=== PATIENT | female | born 1930 | race Caucasian/White ===

== ENCOUNTER 2017-04-25 11:29 | Observation (INO) | payer OTHER ==
[~2017-04-25] VITALS: Ht 157.5 cm; Wt 63.0 kg
[~2017-04-25 11:29] MED LIST: ANTIDEPRESSANT; ATIVAN1 MG PO; AUGMENTIN 875875 MG PO; BP MED?; BUSPIRONE HCL5 MG PO; CIPRO250 M1 PO; CIPROFLOXACIN500 M1 PO; CLARITIN10 MG PO; DIOVAN; DIOVAN HCT 1601 EACH PO; FLAGYL500 MG PO; FLUOXETINE HCL40 MG PO; HYDROCHLOROTHIA50 MG; HYDROCODON-ACE1 EAC7 PO; HYDROCODON-ACE1 EACH PO; HYDROCORTISONE120 M1 TOP; IRON325 PO; LEVOXYL100 MCG PO; LOSARTAN POTASS50 MG PO; MIRALAX17 GM PO; NEURONTIN 300300 M1 PO; NEXIUM 40 MG CA40 M1 PO; NEXIUM40 MG PO; NORCO 5-325 TA1 EACH PO; OXYBUTYNIN 5 MG5 M2 PO; PERCOCET 5-3251 EACH PO; PREVACID 24HR15 MG; PROAIR HFA8.5 GM INH; PROTONIX40 M1 PO; PROZAC 20 MG20 M1 PO; SYNTHROID; TRAMADOL 50 MG50 MG PO; VICODIN; WELLBUTRIN 75 M75 M1 PO; [UNRECOGNIZED DRUG - OTHER] PO
[2017-04-25 11:58] VITALS: BP 183/75
[2017-04-25 12:11] LABS: ABSOLUTE EOSINOPHILS 0.1 thou/uL (0.0-0.7); ABSOLUTE LYMPHOCYTES 1.6 thou/uL (0.8-5.3); ABSOLUTE MONOCYTES 0.3 thou/uL (0.0-1.2); ABSOLUTE NEUTROPHILS 2.4 thou/uL (1.6-8.1); BASOPHILS 1.1 %; EOSINOPHILS 1.5 %; HEMATOCRIT 42.2 % (37.0-47.0); HEMOGLOBIN 13.9 gm/dL (12.0-15.0); LYMPHOCYTES 35.7 %; MCH 32.3 pg (26.0-34.0); MCV 97.7 fL (80.0-100.0); MONOCYTES 6.5 %; MPV 8.4 fl. (7.2-11.1); NUCLEATED RBCS 0 /100WBC; PLATELET COUNT* 246 thou/uL (150-400); POLYS 55.2 %; RBC 4.32 mil/uL (4.20-5.00); WBC 4.4 thou/uL (4.0-11.0)
[2017-04-25 12:18] LABS: CALCIUM 8.7 mg/dL (8.5-10.1); CREATININE 0.7 mg/dL (0.6-1.3); POTASSIUM 3.2 mmol/L (3.5-5.1)
[2017-04-25 12:23] LABS: ALBUMIN 3.3 g/dL (3.4-5.0); TOTAL BILIRUBIN 0.4 mg/dL (<0.1-1.0)
[2017-04-25 12:31] LABS: INFLUENZA A ANTIGEN None Detected (None Detect); INFLUENZA B ANTIGEN None Detected (None Detect)
[2017-04-25 13:04] LABS: URINE BLOOD NEGATIVE (Negative); URINE CLARITY CLEAR; URINE COLOR YELLOW; URINE GLUCOSE-RANDOM NEGATIVE (Negative); URINE KETONES TRACE (Negative); URINE LEUKOCYTES-REFLEX NEGATIVE (Negative); URINE NITRITE-REFLEX NEGATIVE (Negative); URINE PROTEIN TRACE (Negative)
[2017-04-25 13:08] LABS: ICTOTEST (BILI CONFIRMATORY) Negative (Negative); URINE BILIRUBIN 1+ (Negative)
[2017-04-25] MEDS ORDERED: PEPCID20 MG PO (14:04)
[2017-04-25] MEDS ORDERED: HYDROCODONE-AP1 EAC6 PO (14:04)
[2017-04-25 15:15] LABS: BE 1.3 mmol/L (-2 to +3); HCO3 27.7 mmol/L (22.0-26.0); pH 7.355 (7.340-7.450)
[2017-04-25 15:18] LABS: PCO2 50.7 mmHg (35.0-45.0)
[2017-04-25 18:00] VITALS: BP 152/86
--- NOTE | 2017-04-25 18:31 | NUR ---
PATIENT ADMITTED TO ROOM 304 VIA CART FROM ER. ASSISTED TO BED FROM ER CART WITH SBA. PATIENT'S ASSESSMENT CHARTED. PATIENT ON O2 AT 2L/NC. DENIES ANY PAIN AT PRESENT TIME. REFUSING SCDS. ORIENTED TO ROOM AND ENVIRONMENT. FALL PRECAUTIONS INITIATED. CALL LIGHT WITHIN REACH. WILL CONTINUE WITH PLAN OF CARE.
[2017-04-26 00:08] VITALS: BP 158/89
--- NOTE | 2017-04-26 05:35 | NUR ---
PT SLEPT WELL OVERNIGHT. IBUPROFEN GIVEN FOR HEADACHE AT HS WITH GOOD RELIEF. UP WITH SBA TO BSC TO VOID OVERNIGHT. LAC IVF INFUSING PER PUMP, SOLUMEDROL GIVEN ORDERED. TO BE SL AFTER THIS BAG OF IVF. O2 2L. POTASSIUM LAB DRAWN THIS MORNING. TAKES MEDS CRUSHED IN APPLESAUCE WITHOUT DIFFICULTY. REFUSING SCDS, LOVENOX GIVEN. RT TX GIVEN. ABLE TO USE CALL LITE AND MAKE NEEDS KNOWN. BED ALARM ON FOR SAFETY.
[2017-04-26 07:30] VITALS: BP 194/88
[2017-04-26] MEDS ORDERED: MEDROLDOSEPACK PO (10:23)
--- NOTE | 2017-04-26 13:32 | NUR ---
CM ASSESSMENT: VISITED WITH PT IN ROOM. PT TO BE DISCHARGED TODAY. PT STATES SHE LIVES ALONE AND DOES DRIVING FOR SHORT DISTANCES BUT HER SON IN LAW DRIVES HER FOR FURTHER DISTANCES. SHE HAS A WALKER THAT SHE USES IT OCASSIONALLY. PT AGREES TO HOME HEALTH,DOES NOT HAVE A PREFERENCE OF COMPANY
--- NOTE | 2017-04-26 14:07 | NUR ---
CM ASSESSMENT: VISITED WITH PT IN ROOM. PT LIVES ALONE AT [facility]. SHE STATES THAT THE WATER PIPES IN THE BUILDING RECENTLY BROKE SO SHE WILL STAY WITH HER SON ELVER UPON DC UNTIL THE WATER IS FIXED. SHE USES A WALKER. HER TWO SONS DRIVE HER TO DR TRINIDAD AND GO [employer] SHOPPING FOR HER EVERY WEEK.PT DENIES NEED FOR HOME HEALTH
--- NOTE | 2017-04-26 17:32 | 2DMMODE ---
[place] [address] 2 D/M-MODE ECHOCARDIOGRAM Name: NEO ALLEN Room: [facility] ADM IN [facility]#: [id number] Admission: 04/26/17 Attend Phys: Rasheed Shay, Discharge: Date of : 30 Date of Service: 04/26/17 1732 Report #: [id number] THIS REPORT FOR: //name// APPROVED REPORT Study performed: 04/26/2017 11:16:33 EXAM: Comprehensive 2D, Doppler, and color-flow Echocardiogram Patient Location: In-Patient Room #: [facility] Status: routine BSA: 1.55 HR: 70 bpm BP: 158/89 mmHg Rhythm: NSR Other Information Study Quality: Good Indications Dyspnea 2D Dimensions LVEF(%): 56.03 (>50%) IVSd: 11.23 (7-11mm) LVOT Diam: 19.77 (18-24mm) LVDd: 40.63 mm PWd: 9.25 (7-11mm) Ascending Ao: 28.46 (22-36mm) LVDs: 28.90 (25-40mm) Aortic Root: 28.45 mm Edwards's LVEF: 56.03 % Volumes Left Atrial Volume (Systole) LA ESV Index: 30.20 mL/m2 Aortic Valve AoV Peak Joce.: 1.41 m/s AO Peak Gr.: 8.01 mmHg LVOT Max P.96 mmHg AO Mean Gr.: 4.56 mmHg LVOT Mean P.60 mmHg LVOT Max V: 0.86 m/s AO V2 VTI: 31.87 cm LVOT Mean V: 0.59 m/s MARTHA (VTI): 1.95 cm2 LVOT V1 VTI: 20.28 cm Mitral Valve E/A Ratio: 0.71 [place] [address] 2 D/M-MODE ECHOCARDIOGRAM Name: NEO ALLEN Room: [address] IN .R.#: [id number] Admission: 04/26/17 Attend Phys: Rasheed Shay, Discharge: Date of : 30 Date of Service: 04/26/17 1732 Report #: [id number] MV Decel. Time: 174.04 ms MV E Max Joce.: 0.93 m/s MV PHT: 50.47 ms MVA (PHT): 4.36 cm2 TDI E/Lateral E': 13.29 E/Medial E': 15.50 Medial E' Joce.: 0.06 m/s Lateral E' Joce.: 0.07 m/s Pulmonary Valve PV Peak Joce.: 0.80 m/s PV Peak Gr.: 2.58 mmHg Tricuspid Valve TR Peak Gr.: 21.57 mmHg RVSP: 26.00 mmHg Left Ventricle The left ventricle is normal size. There is normal LV segmental wall motion. There is normal left ventricular wall thickness. Left ventricular systolic function is normal. The left ventricular ejection fraction is within the normal range. LVEF is 55-60%. Grade I - abnormal relaxation pattern. Right Ventricle The right ventricle is normal size. The right ventricular systolic function is normal. Atria Left atrium is mildly dilated. The right atrium size is normal. Aortic Valve Mild aortic valve sclerosis. No aortic regurgitation is present. There is no aortic valvular stenosis. Mitral Valve There is mitral annular calcification. Mild mitral regurgitation. No evidence of mitral valve stenosis. Tricuspid Valve The tricuspid valve is normal in structure. Trace tricuspid regurgitation. The RVSP is ____26___ mmHg. Pulmonic Valve Pulmonic valve is not well visualized. Trace [place] [address] 2 D/M-MODE ECHOCARDIOGRAM Name: NEO ALLEN Room: [address] IN .R.#: [id number] Admission: 04/26/17 Attend Phys: Rasheed Shay, Discharge: Date of : 30 Date of Service: 04/26/17 1732 Report #: [id number] Great Vessels The aortic root is normal in size. IVC is normal in size and collapses with >50% inspiration Pericardium There is no pericardial effusion. <Conclusion> LVEF is 55-60%. Left atrium is mildly dilated. Mild aortic valve sclerosis. Mild mitral regurgitation. <ELECTRONICALLY SIGNED> By: Roderick Can MD, FACC 04/26/17 173 [id number] Roderick Can MD, FACC /INF
[2017-04-26 18:03] VITALS: BP 165/69
--- NOTE | 2017-04-26 20:07 | NUR ---
PATIENT HAS BEEN A/O 4, SLIGHTLY FORGETFUL AT TIMES. MEDICATED FOR ARTHRITIC PAIN WITH RELIEF. ATTEMPTED TO TITRATE PATIENT TO ROOM AIR, RESTING ROOM AIR SAT 88%. AMBULATED WITH RESPIRATORY THERAPY AND O2 88% ON ROOM AIR. PATIENT REFUSED TO HAVE TO HAVE O2 AT HOME, DR BARILLAS NOTIFIED AND DC HELD. PATIENT'S SON NOTIFIED OF DC BEING HELD. PATIENT UP TO BSC WITH SBA. IV FLUID SALINE LOCKED. REPOSITIONING SELF IN BED. PATIENT HOPEFUL TO BE DISCHARGED SOON. FALL PRECAUTIONS IN PLACE. HOURLY ROUNDING COMPLETED. CALL LIGHT WITHIN REACH. WILL CONTINUE WITH PLAN OF CARE.
[2017-04-27] VITALS: BP 153/88
--- NOTE | 2017-04-27 05:26 | NUR ---
PATIENT SLEPT MOST OF THE NIGHT. IV REMAINS SALINE LOCKED. PATIENT REMAINS ON OXYGEN AT 1L PER NASAL CANNULA. PATIENT IS POSSIBLY GOING HOME TODAY. WILL CONTINUE TO MONITOR.
[2017-04-27 09:30] VITALS: BP 180/80
[2017-04-27 12:06] VITALS: BP 180/80
--- NOTE | 2017-04-27 14:13 | NUR ---
DR. BARILLAS WAS MADE AWARE THAT PATIENT 02 SAT RESTING WAS 87% RA. ORDERS TO AMBULATE PATIENT AND OK FOR HOME 02 IF NEEDED. PATIENT RELUCTENT TO HAVE HOME 02. PATIENT AMBULATED WITH THIS NURSE IN HALLWAY. PATIENT 02 RA WHILE AMBULATING WAS 87-90%. HR WNL WHILE AMBULATING. PATIENT STATED SHE NEVER FEELS SHORT OF BREATH. ARMEN FROM NOTIFIED AND WILL SPEAK WITH PATIENT.
--- NOTE | 2017-04-27 14:18 | NUR ---
Pt to dc home with son today. Possibility of pt needing oxygen, ARIELLE discussed with pt the pt preference and consent for pt to arrange oxygen for pt with [facility]. Pt wanted to decline oxygen at this time due to the fact that pt said she would rather try without and then she plans to check with her doctor if she thinks she may need it later. ARIELLE discussed with pt nurse and no other needs noted at this time.
[2017-04-27 15:29] VITALS: BP 180/80
--- NOTE | 2017-04-27 17:05 | NUR ---
PATIENT DISCHARGED TO HOME WITH HOME 02 AT 2L NC. UP WITH ASSISTANCE TO BSC WITH WALKER FREQUENTLY TO VOID. PATIENT AMBULATED OUT IN HALLWAY WITH THIS NURSE FOR 02 ASSESSMENT. PATIENT VERBALIZED UNDERSTANDING OF PAPERWORK AND SCRIPT, HOME 02 TANK SENT WITH PATIENT. PATIENT TAKEN OUT VIA WHEELCHAIR WITH STAFF.
== END 2017-04-27 17:07 | disposition home or self-care (01) ==
LOC: M.ERS 11:29 → M.3W 14:42 → M.TBA-ER 14:42 → M.3W 17:52
PROVIDERS: Physician Assistant; ADMIT Internal Medicine
DX: J96.01 Acute respiratory failure with hypoxia (principal); M13.80 Other specified arthritis, unspecified site; K29.70 Gastritis, unspecified, without bleeding; K57.30 Diverticulosis of large intestine without perforation or abscess without bleeding; K21.9 Gastro-esophageal reflux disease without esophagitis; K22.70 Barrett's esophagus without dysplasia; K44.9 Diaphragmatic hernia without obstruction or gangrene; I10 Essential (primary) hypertension; R79.1 Abnormal coagulation profile; E87.6 Hypokalemia; E03.9 Hypothyroidism, unspecified; E78.6 Lipoprotein deficiency; F32.9 Major depressive disorder, single episode, unspecified; Z90.49 Acquired absence of other specified parts of digestive tract; K57.92 Diverticulitis of intestine, part unspecified, without perforation or abscess without bleeding; Z90.710 Acquired absence of both cervix and uterus

== ENCOUNTER 2017-08-13 18:06 | Emergency (ER) | payer OTHER ==
[~2017-08-13] VITALS: Ht 157.5 cm; Wt 60.3 kg
[~2017-08-13 18:06] MED LIST changes: +HYDROCODONE-AP1 EAC6 PO; +MEDROLDOSEPACK PO; +PEPCID20 MG PO
[2017-08-13 18:45] LABS: ABSOLUTE EOSINOPHILS 0.1 thou/uL (0.0-0.7); ABSOLUTE LYMPHOCYTES 2.1 thou/uL (0.8-5.3); ABSOLUTE MONOCYTES 0.5 thou/uL (0.0-1.2); ABSOLUTE NEUTROPHILS 3.4 thou/uL (1.6-8.1); BASOPHILS 0.8 %; EOSINOPHILS 1.2 %; HEMOGLOBIN 13.9 gm/dL (12.0-15.0); LYMPHOCYTES 33.6 %; MCH 32.5 pg (26.0-34.0); MCHC 33.2 g/dL (28.0-37.0); MCV 98.1 fL (80.0-100.0); MONOCYTES 8.4 %; MPV 8.5 fl. (7.2-11.1); NUCLEATED RBCS 0 /100WBC; PLATELET COUNT* 252 thou/uL (150-400); RBC 4.28 mil/uL (4.20-5.00); RDW-CV 14.2 % (10.5-14.5); WBC 6.1 thou/uL (4.0-11.0)
[2017-08-13 18:48] LABS: ANION GAP 5 mmol/L (7-16); BUN 11 mg/dL (7-18); CHLORIDE 102 mmol/L (98-107); CO2 32 mmol/L (21-32); CREATININE 0.9 mg/dL (0.6-1.3); GLUCOSE 119 mg/dL (70-99); POTASSIUM 3.9 mmol/L (3.5-5.1); SODIUM 139 mmol/L (136-145)
[2017-08-13 18:55] LABS: ALBUMIN 3.6 g/dL (3.4-5.0); ALKALINE PHOSPHATASE 121 U/L (46-116); SGOT 18 U/L (15-37); SGPT 21 U/L (30-65); TOTAL BILIRUBIN 0.4 mg/dL (<0.1-1.0); TOTAL PROTEIN 7.1 g/dL (6.4-8.2); TROPONIN-I LEVEL <0.06 ng/mL (<0.06)
[2017-08-13 19:08] LABS: APTT 29.3 Seconds (25.0-31.3); INR 1.1; PROTIME 10.7 Seconds (9.20-11.50)
[2017-08-13] MEDS ORDERED: NORCO 5-325 TA1 EAC1 PO (20:43)
[2017-08-13 21:00] VITALS: BP 200/75
--- NOTE | 2017-08-14 11:16 | EKG ---
[place] [address] ELECTROCARDIOGRAM REPORT Name: NEO ALLEN Room: [facility]#: [id number] Admission: 08/13/17 Attend Phys: Discharge: 08/13/17 Date of : 30 Report #: [id number] THIS REPORT FOR: //name// [facility] ED Test Date: 2017-08-13 Test Time: 18:14:15 Pat Name: NEO ALLEN Department: Room: Gender: F Shank Piece Tacker: Juanito GABRIEL : 1930 Requested By: Niharika Bazzi Order Number: [id number] MD: Roderick Can Measurements Intervals [place] Rate: 75 P: OK: QRS: -9 QRSD: 96 T: 46 QT: 467 QTc: 522 Interpretive Statements sinus rhythm Left ventricular hypertrophy Anterior Q waves, possibly due to LVH Prolonged QT interval Artifact in lead(s) I,II,III,aVR,aVL,aVF Compared to ECG 10/13/2016 08:36:56 Left ventricular hypertrophy now present Myocardial infarct finding still present Electronically Signed On 08-14-2017 11:15:59 CDT by Roderick Can [email or web address] <ELECTRONICALLY SIGNED> By: Roderick Can MD, FACC 08/14/17 1115 1814 1814 Roderick Can MD, FACC /EPI
--- NOTE | 2017-08-14 11:17 | EKG ---
[place] [address] ELECTROCARDIOGRAM REPORT Name: NEO ALLEN [id number] Admission: 08/13/17 Attend Phys: Discharge: 08/13/17 Date of : 30 Report #: [id number] THIS REPORT FOR: //name// [facility] ED Test Date: 2017-08-13 Test Time: 18:47:52 Pat Name: NEO ALLEN Department: Room: Gender: F Metal Can Inspector: HERRERA : 1930 Requested By: Niharika Bazzi Order Number: [id number] Jeannette MD: Roderick Can Measurements Intervals [place] Rate: 68 P: 40 IN: 181 QRS: 0 QRSD: 115 T: 46 QT: 452 QTc: 481 Interpretive Statements Sinus rhythm Anterior infarct, old Electronically Signed On 08-14-2017 11:17:22 CDT by Roderick Can [email or web address] <ELECTRONICALLY SIGNED> By: Roderick Can MD, [facility] 08/14/17 1117 1847 1847 Roderick Can MD, FACC /EPI
== END 2017-08-13 21:11 | disposition home or self-care (01) ==
LOC: M.ERS 18:06
PROVIDERS: Nurse Practitioner Family
DX: S22.31XA Fracture of one rib, right side, initial encounter for closed fracture (principal); E03.9 Hypothyroidism, unspecified; I10 Essential (primary) hypertension; K21.9 Gastro-esophageal reflux disease without esophagitis; F32.9 Major depressive disorder, single episode, unspecified; F41.9 Anxiety disorder, unspecified; Z85.828 Personal history of other malignant neoplasm of skin; Z85.528 Personal history of other malignant neoplasm of kidney; Z90.49 Acquired absence of other specified parts of digestive tract; Z90.710 Acquired absence of both cervix and uterus; W01.0XXA Fall on same level from slipping, tripping and stumbling without subsequent striking against object, initial encounter; Y93.89 Activity, other specified; Y92.89 Other specified places as the place of occurrence of the external cause; Y99.8 Other external cause status; Z98.890 Other specified postprocedural states

== ENCOUNTER 2017-08-23 07:37 | Inpatient (IN) | payer OTHER ==
[~2017-08-23] VITALS: Ht 157.5 cm; Wt 61.7 kg
[~2017-08-23 07:37] MED LIST changes: +NORCO 5-325 TA1 EAC1 PO
[2017-08-23 07:42] VITALS: BP 183/94
--- NOTE | 2017-08-23 08:10 | NUR ---
PT ASSISTED TO RESTROOM TO PROVIDE URINE SAMPLE. PT USED OWN WALKER TO AMBULATE
[2017-08-23 08:13] LABS: ABSOLUTE BASOPHILS 0.1 thou/uL (0.0-0.2); ABSOLUTE EOSINOPHILS 0.1 thou/uL (0.0-0.7); ABSOLUTE LYMPHOCYTES 1.2 thou/uL (0.8-5.3); ABSOLUTE MONOCYTES 0.3 thou/uL (0.0-1.2); ABSOLUTE NEUTROPHILS 3.6 thou/uL (1.6-8.1); BASOPHILS 1.1 %; EOSINOPHILS 1.4 %; HEMATOCRIT 42.6 % (37.0-47.0); HEMOGLOBIN 14.1 gm/dL (12.0-15.0); LYMPHOCYTES 23.1 %; MCH 32.1 pg (26.0-34.0); MCHC 33.1 g/dL (28.0-37.0); MCV 97.1 fL (80.0-100.0); MONOCYTES 5.8 %; MPV 8.3 fl. (7.2-11.1); NUCLEATED RBCS 0 /100WBC; PLATELET COUNT* 244 thou/uL (150-400); POLYS 68.6 %; RBC 4.39 mil/uL (4.20-5.00); WBC 5.2 thou/uL (4.0-11.0)
[2017-08-23 08:22] LABS: ANION GAP 6 mmol/L (7-16); BUN 15 mg/dL (7-18); CALCIUM 8.8 mg/dL (8.5-10.1); CHLORIDE 103 mmol/L (98-107); CO2 32 mmol/L (21-32); CREATININE 0.8 mg/dL (0.6-1.3); GLUCOSE 90 mg/dL (70-99); SODIUM 141 mmol/L (136-145)
[2017-08-23 08:25] LABS: URINE BILIRUBIN NEGATIVE (Negative); URINE BLOOD NEGATIVE (Negative); URINE CLARITY CLEAR; URINE COLOR YELLOW; URINE GLUCOSE-RANDOM NEGATIVE (Negative); URINE KETONES NEGATIVE (Negative); URINE LEUKOCYTES-REFLEX NEGATIVE (Negative); URINE NITRITE-REFLEX NEGATIVE (Negative); URINE PROTEIN NEGATIVE (Negative)
[2017-08-23 08:29] LABS: ALBUMIN 3.4 g/dL (3.4-5.0); ALKALINE PHOSPHATASE 105 U/L (46-116); LIPASE 94 U/L (73-393); SGOT 16 U/L (15-37); SGPT 16 U/L (30-65); TOTAL BILIRUBIN 0.4 mg/dL (<0.1-1.0); TOTAL PROTEIN 6.7 g/dL (6.4-8.2); TROPONIN-I LEVEL <0.06 ng/mL (<0.06)
[2017-08-23 08:34] LABS: APTT 27.8 Seconds (25.0-31.3); PROTIME 10.2 Seconds (9.20-11.50)
--- NOTE | 2017-08-23 08:44 | NUR ---
WHILE PATIENT WAS AT CAT SCAN, LDR RN CALLED TO INQUIRE IF PT SPECIFIED ANY ALLERGIES. PT DENIES HAVING ALLERGIES UPON TRIAGE. PT TOLD LDR RN THAT SHE DOES HAVE AN ALLERGY TO A MEDICATION BUT CANNOT REMEMBER WHAT IT IS AND STATES THAT HER SON KNOWS. PT'S SON LEFT THE ED. PHYSICIAN NOTIFIED.
--- NOTE | 2017-08-23 08:54 | NUR ---
PT'S SON, ELVER, WAS CONTACTED AND ASKED ABOUT THE PT'S ALLERGIES. ELVER CANNOT REMEMBER THE NAME OF THE MEDICATION BUT STATES IT WAS SOMETHING THAT THE PT DRANK FOR A "STOMACH TEST" THAT MADE HER COUGH UNCONTROLLABLY. ELVER STATES THAT HE WILL CALL HIS SISTER TO SEE IF SHE CAN REMEMBER THE NAME OF THE MEDICATION AND WILL LET US KNOW IF THEY CAN THINK OF IT. PHYSICIAN NOTIFIED.
--- NOTE | 2017-08-23 09:09 | NUR ---
PT STATES SHE NEEDS TO HAVE ALL OF HER HOME MEDICATIONS CRUSHED AND MIXED WITH APPLESAUCE SO SHE CAN SWALLOW THEM.
[2017-08-23 10:00] VITALS: BP 164/75
[2017-08-23 10:20] VITALS: BP 172/62
--- NOTE | 2017-08-23 15:19 | EKG ---
[place] [address] ELECTROCARDIOGRAM REPORT Name: NEO ALLEN Room: [address] IN .R.#: [id number] Admission: 08/23/17 Attend Phys: Bree Clement Discharge: Date of : 30 Report #: [id number] THIS REPORT FOR: //name// [facility] ED Test Date: 2017-08-23 Test Time: 08:01:03 Pat Name: NEO ALLEN Department: Room: Gender: F Mixing Pan Tender: Juanito DINH : 1930 Requested By: Hiram Padron Order Number: [id number] MD: Faizan Howe Measurements Intervals [place] Rate: 66 P: 72 [place]: 190 QRS: -5 QRSD: 102 T: 55 QT: 429 QTc: 450 Interpretive Statements Sinus rhythm Inferior infarct, old possible Anterior infarct, old Compared to ECG 08/13/2017 18:47:52 No significant changes Electronically Signed On 08-23-2017 15:19:26 CDT by Faizan Howe [email or web address] <ELECTRONICALLY SIGNED> By: Faizan Howe MD, [facility] 08/23/17 1519 0801 0801 Faizan Howe MD, [facility] /EPI
[2017-08-23 17:39] LABS: HEMATOCRIT 38.9 % (37.0-47.0); HEMOGLOBIN 12.7 gm/dL (12.0-15.0)
--- NOTE | 2017-08-23 18:07 | NUR ---
PATIENT RESTING IN BED. PATIENT HAS HAD COMPLAINTS OF HEADACHE, HYDROCODONE GIVEN. PATIENT WENT TO [facility] AND CT FOR TESTING WITHOUT INCIDENT. PATIENT HAS HAD BOWEL MOVEMENT X 2, 1 WITH LARGE AMOUNT OF BRIGHT RED AND COFFEE GROUND STOOL. PATIENT IS TOLERATING DIET THIS EVENING, NO COMNPLAINTS OF NAUSEA. PATIENT IS UP STANDBY WITH WALKER. PATIENT DENIES ANY NEEDS AT THIS TIME. CALL LIGHT WITHIN REACH. WILL CONTINUE TO MONITOR.
[2017-08-23 23:54] VITALS: BP 121/59
[2017-08-24 04:37] LABS: HEMATOCRIT 36.8 % (37.0-47.0); HEMOGLOBIN 12.3 gm/dL (12.0-15.0); MCH 32.9 pg (26.0-34.0); MCHC 33.3 g/dL (28.0-37.0); MCV 98.7 fL (80.0-100.0); MPV 8.7 fl. (7.2-11.1); RBC 3.73 mil/uL (4.20-5.00); RDW-CV 14.6 % (10.5-14.5); WBC 4.8 thou/uL (4.0-11.0)
[2017-08-24 04:49] LABS: ALBUMIN 3.1 g/dL (3.4-5.0); CALCIUM 8.3 mg/dL (8.5-10.1); CREATININE 0.7 mg/dL (0.6-1.3); POTASSIUM 4.2 mmol/L (3.5-5.1); TOTAL BILIRUBIN 0.4 mg/dL (<0.1-1.0); TOTAL PROTEIN 5.5 g/dL (6.4-8.2)
[2017-08-24 08:00] VITALS: BP 173/80
--- NOTE | 2017-08-24 11:30 | NUR ---
MET WITH PT TO DISCUSS HOME SITUATION/DC PLANNING. [facility] 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 PT IS ABLE TO DO HER OWN ADLS, SOME LAUNDRY AND COOK. SHE HAS 2 SONS THAT HELP [employer] TRANSPORTATION AND SHOPPING. PT HAS HAD HH AND BEEN TO SNF AT [facility] IN PAST. SHE DOESN'T THINK SHE WILL NEED ANYTHING AT DC. WILL FOLLOW
[2017-08-24 15:33] VITALS: BP 127/48
--- NOTE | 2017-08-24 17:32 | NUR ---
PATIENT RESTING IN BED. PATIENT DENIES ANY PAIN. PATIENT IS UP STANDBY ASSIST WITH WALKER TO BATHROOM. PATIENT DID HAVE ONE BLOODY STOOL THIS AM. PATIENT HAS VERY GOOD APPETITE. PATIENT DENIES ANY NEEDS AT THIS TIME. CALL LIGHT WITHIN REACH. WILL CONTINUE TO MONITOR.
[2017-08-24 18:57] LABS: HEMATOCRIT 36.6 % (37.0-47.0)
[2017-08-24 20:20] VITALS: BP 136/56
[2017-08-25 04:11] LABS: HEMATOCRIT 36.4 % (37.0-47.0); HEMOGLOBIN 11.9 gm/dL (12.0-15.0); MCH 32.1 pg (26.0-34.0); MCHC 32.8 g/dL (28.0-37.0); MCV 97.8 fL (80.0-100.0); MPV 8.8 fl. (7.2-11.1); RBC 3.72 mil/uL (4.20-5.00); RDW-CV 14.1 % (10.5-14.5); WBC 4.9 thou/uL (4.0-11.0)
[2017-08-25 04:23] LABS: ALBUMIN 2.9 g/dL (3.4-5.0); CALCIUM 8.5 mg/dL (8.5-10.1); CREATININE 0.7 mg/dL (0.6-1.3); TOTAL BILIRUBIN 0.4 mg/dL (<0.1-1.0); TOTAL PROTEIN 5.6 g/dL (6.4-8.2)
--- NOTE | 2017-08-25 05:14 | NUR ---
PT SLEPT MOST OF SHIFT. ASSESSMENT DOCUMENTED. MEDS GIVEN PER E-JUN. IV PATENT. NO REPORTS OF PAIN OR NAUSEA THIS SHIFT. NO BOWEL MOVEMENTS THIS SHIFT. WILL CONTINUE WITH PLAN OF CARE.
[2017-08-25 07:45] VITALS: BP 165/70
[2017-08-25 11:40] VITALS: BP 165/70
--- NOTE | 2017-08-25 11:54 | NUR ---
CM SPOKE TO THE PATIENT TO DISCUSS HH, DISCHARGE PLANNNING NEEDS, AND ANY QUESTIONS OR CONCERNS THAT SHE MAY HAVE. PATIENT DECLINED HH, AND HAS NO OTHER QUESTIONS OR CONCERNS AT THIS TIME. CM WILL REMAIN AVAILABLE TO ASSIST AND FOLLOW NEEDED.
--- NOTE | 2017-08-25 11:56 | NUR ---
CM SPOKE TO THE PATIENT AND SPOUSE TO DISCUSS ANY QUESTIONS OR CONCERNS THAT THEY MAY HAVE. PATIENT AND SPOUSE HAD NO QUESTIONS OR CONCERNS AT THIS TIME. CM SPOKE TO DR JACOBO AND HE INFORMS THAT PLAN IS FOR PATIENT TO REMAIN INPATIENT OVER THE WEEKEND WITH PLAN TO D/C BACK TO [facility] MONDAY (08/28/17). CM WILL REMAIN AVAILABLE TO ASSIST AND FOLLOW NEEDED.
--- NOTE | 2017-08-25 13:09 | CON ---
[address] [address] CONSULTATION Name: NEO ALLEN Room: [address] IN M.R.#: [id number] Admission: 08/23/17 Attend Phys: Bree Clement Discharge: Date of : 30 Report #: [id number] THIS REPORT FOR: //name// CC: Physician staff BROOKE Frazier DATE OF SERVICE: 08/23/2017 ADDENDUM The patient with previous history of GI bleed, which has been assumed as self-limiting diverticular bleed. Her last upper and lower endoscopy was performed in 2016 without any evidence of active bleeding. During her last hospitalization in April, she had a tagged RBC scan, which showed possible bleeding in the stomach, but the EGD was unrevealing. She presents with another episodes of bright red blood per rectum. Her hemoglobin is 14 and she has mild left quadrant abdominal pain. If the bleeding persists, we may consider repeating RBC tagged scan. Meanwhile, we will repeat H and H. We will make further recommendation based on the patient's symptoms and activity of her GI bleed. <ELECTRONICALLY SIGNED> By: Noe Delarosa MD 08/25/17 1309 1434 0102Noe Delarosa MD /nt
--- NOTE | 2017-08-25 13:09 | CON ---
[address] [address] CONSULTATION Name: OBEDDaviNEO Juanito Room: [address] IN .R.#: [id number] Admission: 08/23/17 Attend Phys: Bree Clement Discharge: Date of : 30 Report #: [id number] THIS REPORT FOR: //name// CC: Physician staff BROOKE Frazier DICTATED BY: Linh Smith [facility] DATE OF SERVICE: 08/23/2017 PRIMARY CARE PHYSICIAN: Brooke Hopkins MD Please note at the time of this dictation, the patient was seen and physically examined by myself. REASON FOR CONSULTATION: Rectal bleeding. HISTORY OF PRESENT ILLNESS: This is a pleasant 87-year-old female presented to the Emergency Room after awakening up first thing this morning about 5:30 when she went to have a bowel movement, she had bright red blood rectal bleeding x 1 prompting her to come in to the Emergency Room. She had associated loose stools with that and abdominal cramping prior to that. Currently at the time of her consultation, she was having very mild discomfort noted. The patient has a long history of having three separate GI bleeds that were likely related to diverticulum with her last one being in September 2016. The patient denies that she was having any constipation and that her bowels have moved soft and formed on a daily basis. The patient did undergo an EGD and colonoscopy in September 2016 with EGD showing minimal chronic inflammation, it was negative for H. pylori, 3 cm hiatal hernia and duodenal diverticulum noted. Colonoscopy showed pandiverticulosis. She had a 4 mm polyp noted in the proximal ascending colon that was not removed secondary to her history of GI bleed and nonworrisome and mild external hemorrhoids. ALLERGIES: No known drug allergies. MEDICATIONS: From home include levothyroxine, fluoxetine, losartan, gabapentin, Ativan, Nexium, iron, hydrocortisone, ProAir, and MiraLax. PAST MEDICAL HISTORY: Hypothyroidism, hypertension, GERD, depression, anxiety, skin cancer of her nose and right arm, hernia. PAST SURGICAL HISTORY: She has had diverticulitis back in the 1980s with this bowel resection. She has had renal cancer with her left cataract surgery. She has had 3 C-sections, hysterectomy, cholecystectomy [place] [address] CONSULTATION Name: KAITNEO DICKINSON Juanito Room: [address]#: [id number] Admission: 08/23/17 Attend Phys: Bree Clement Discharge: Date of : 30 Report #: [id number] and her esophagus stress on numerous occasions. FAMILY HISTORY: Noncontributory. SOCIAL HISTORY: The patient lives in a nursing home facility. Denies any alcohol, tobacco or illegal drug use. REVIEW OF SYSTEMS: Twelve-point review of systems essentially negative except what is mentioned in the HPI. PHYSICAL EXAMINATION: VITAL SIGNS: Temperature 36.6, pulse 72, respirations 14, blood pressure 132/104. HEART: Regular rate and rhythm. LUNGS: Clear. ABDOMEN: Soft, positive bowel sounds in all 4 quadrants with some slight tenderness in the left lower quadrant. LABORATORY DATA: Hemoglobin on admission was 14.1, hematocrit 42.6, white count is 5.2, platelets 294. Sodium 141, potassium 4, chloride 103, CO2 of 32, BUN is 15, creatinine 0.8, GFR is 68, glucose is 90. PT is 10.2 and INR is 1. LFTs were completely normal. CT of the abdomen and pelvis showed scattered diverticula on the right and in the descending colon and left nephrectomy noted. IMPRESSION: 1. Rectal bleeding. 2. Abdominal pain. 3. History of diverticular bleeds, self-limiting in the past. 4. History of renal cancer, status post left nephrectomy. PLAN: 1. Tagged RBC scan today. 2. Monitor H and H. 3. Await further recommendations once the above have been noted. Thank you for allowing us to participate in this patient's care. Please do not hesitate to call with any questions in regard to this consult. ADDENDUM The patient with previous history of GI bleed, which has been assumed as self-limiting diverticular bleed. Her last upper and lower endoscopy was performed in 2016 without any evidence of active bleeding. During her last hospitalization in April, she had a tagged RBC scan, which showed possible bleeding in the stomach, but the EGD was unrevealing. She presents with another episodes of bright red blood per rectum. Her hemoglobin is 14 and she has mild [place] [address] [place] [address] CONSULTATION Name: NEO ALLEN Room: [address] IN [facility].#: [id number] Admission: 08/23/17 Attend Phys: Bree Clement Discharge: Date of : 30 Report #: [id number] left quadrant abdominal pain. If the bleeding persists, we may consider repeating RBC tagged scan. Meanwhile, we will repeat H and H. We will make further recommendation based on the patient's symptoms and activity of her GI bleed. <ELECTRONICALLY SIGNED> By: Noe Delarosa MD 08/25/17 1309 1203 2209Noe Delarosa MD /nt
--- NOTE | 2017-08-25 16:55 | NUR ---
PATIENT DISCHARGED TO HOME. DISCHARGE PAPERS REVIEWED AND SIGNED. PRESCRIPTION AND INFORMATION GIVEN. IV REMOVED. PATIENT DENIES ANY FURTHER NEEDS. PATIENT TAKEN BY WHEELCHAIR TO EXIT. LEFT WITH SON.
== END 2017-08-25 16:55 | disposition home or self-care (01) | DRG 377 ==
LOC: M.ERS 07:37 → M.TBA-ER 08:49 → M.3W 08:49
PROVIDERS: Family Medicine; Internal Medicine Gastroenterology; Nurse Practitioner Adult Health; ADMIT Internal Medicine
DX: K57.33 Diverticulitis of large intestine without perforation or abscess with bleeding (principal); J96.01 Acute respiratory failure with hypoxia; N39.0 Urinary tract infection, site not specified; E44.0 Moderate protein-calorie malnutrition; K92.2 Gastrointestinal hemorrhage, unspecified; E03.9 Hypothyroidism, unspecified; I10 Essential (primary) hypertension; K21.9 Gastro-esophageal reflux disease without esophagitis; D32.9 Benign neoplasm of meninges, unspecified; M19.90 Unspecified osteoarthritis, unspecified site; F41.9 Anxiety disorder, unspecified; Z85.528 Personal history of other malignant neoplasm of kidney; Z85.828 Personal history of other malignant neoplasm of skin; Z98.891 History of uterine scar from previous surgery; Z90.5 Acquired absence of kidney; Z90.710 Acquired absence of both cervix and uterus; Z90.49 Acquired absence of other specified parts of digestive tract; Z98.42 Cataract extraction status, left eye; Z79.899 Other long term (current) drug therapy; Z82.49 Family history of ischemic heart disease and other diseases of the circulatory system

== ENCOUNTER 2017-11-20 22:11 | Inpatient (IN) | payer OTHER ==
[~2017-11-20] VITALS: Ht 157.5 cm; Wt 59.9 kg
[2017-11-20 22:13] VITALS: BP 209/107
[2017-11-20 23:31] LABS: URINE BILIRUBIN NEGATIVE (Negative); URINE BLOOD NEGATIVE (Negative); URINE CLARITY CLEAR; URINE COLOR YELLOW; URINE GLUCOSE-RANDOM NEGATIVE (Negative); URINE KETONES NEGATIVE (Negative); URINE LEUKOCYTES-REFLEX NEGATIVE (Negative); URINE NITRITE-REFLEX NEGATIVE (Negative); URINE PROTEIN NEGATIVE (Negative)
[2017-11-20 23:55] VITALS: BP 181/79
[2017-11-21 00:06] VITALS: BP 186/99
[2017-11-21 00:20] VITALS: BP 181/79
[2017-11-21 08:15] VITALS: BP 191/81
[2017-11-21 12:38] LABS: ABSOLUTE EOSINOPHILS 0.1 thou/uL (0.0-0.7); ABSOLUTE LYMPHOCYTES 1.3 thou/uL (0.8-5.3); ABSOLUTE MONOCYTES 0.4 thou/uL (0.0-1.2); ABSOLUTE NEUTROPHILS 4.1 thou/uL (1.6-8.1); BASOPHILS 0.7 %; EOSINOPHILS 1.3 %; HEMATOCRIT 39.2 % (37.0-47.0); HEMOGLOBIN 12.7 gm/dL (12.0-15.0); LYMPHOCYTES 21.4 %; MCH 31.8 pg (26.0-34.0); MCHC 32.4 g/dL (28.0-37.0); MCV 97.9 fL (80.0-100.0); MONOCYTES 7.1 %; NUCLEATED RBCS 0 /100WBC; PLATELET COUNT* 224 thou/uL (150-400); POLYS 69.5 %; RDW-CV 13.8 % (10.5-14.5); WBC 5.9 thou/uL (4.0-11.0)
[2017-11-21 12:48] LABS: ALBUMIN 2.8 g/dL (3.4-5.0); CALCIUM 8.3 mg/dL (8.5-10.1); CREATININE 0.8 mg/dL (0.6-1.3); POTASSIUM 3.7 mmol/L (3.5-5.1); TOTAL BILIRUBIN 0.4 mg/dL (<0.1-1.0); TOTAL PROTEIN 6.2 g/dL (6.4-8.2)
[2017-11-21 17:37] VITALS: BP 157/76
[2017-11-21 20:20] VITALS: BP 162/71
[2017-11-22 04:39] LABS: ABSOLUTE EOSINOPHILS 0.1 thou/uL (0.0-0.7); ABSOLUTE LYMPHOCYTES 1.5 thou/uL (0.8-5.3); ABSOLUTE MONOCYTES 0.4 thou/uL (0.0-1.2); ABSOLUTE NEUTROPHILS 2.9 thou/uL (1.6-8.1); EOSINOPHILS 2.9 %; HEMATOCRIT 41.4 % (37.0-47.0); HEMOGLOBIN 13.5 gm/dL (12.0-15.0); LYMPHOCYTES 30.7 %; MCH 32.3 pg (26.0-34.0); MCHC 32.6 g/dL (28.0-37.0); MCV 99.2 fL (80.0-100.0); MPV 8.8 fl. (7.2-11.1); NUCLEATED RBCS 0 /100WBC; PLATELET COUNT* 210 thou/uL (150-400); POLYS 57.4 %; RBC 4.17 mil/uL (4.20-5.00); RDW-CV 14.3 % (10.5-14.5)
[2017-11-22 05:03] LABS: CALCIUM 8.4 mg/dL (8.5-10.1); CREATININE 0.8 mg/dL (0.6-1.3); POTASSIUM 4.6 mmol/L (3.5-5.1)
[2017-11-22 07:55] VITALS: BP 181/100
[2017-11-22 19:00] VITALS: BP 177/71
[2017-11-22 23:43] VITALS: BP 158/80
[2017-11-23 05:02] LABS: ABSOLUTE EOSINOPHILS 0.2 thou/uL (0.0-0.7); ABSOLUTE LYMPHOCYTES 1.3 thou/uL (0.8-5.3); ABSOLUTE MONOCYTES 0.4 thou/uL (0.0-1.2); ABSOLUTE NEUTROPHILS 3.4 thou/uL (1.6-8.1); BASOPHILS 0.6 %; EOSINOPHILS 3.2 %; HEMATOCRIT 40.1 % (37.0-47.0); LYMPHOCYTES 24.1 %; MCH 31.7 pg (26.0-34.0); MCHC 32.4 g/dL (28.0-37.0); MCV 97.8 fL (80.0-100.0); MONOCYTES 8.4 %; MPV 8.7 fl. (7.2-11.1); NUCLEATED RBCS 0 /100WBC; PLATELET COUNT* 199 thou/uL (150-400); POLYS 63.7 %; WBC 5.3 thou/uL (4.0-11.0)
[2017-11-23 05:09] LABS: APTT 29.2 Seconds (25.0-31.3); PROTIME 10.2 Seconds (9.20-11.50)
[2017-11-23 05:19] LABS: ALBUMIN 2.9 g/dL (3.4-5.0); CALCIUM 8.6 mg/dL (8.5-10.1); CREATININE 0.7 mg/dL (0.6-1.3); POTASSIUM 3.6 mmol/L (3.5-5.1); TOTAL BILIRUBIN 0.5 mg/dL (<0.1-1.0); TOTAL PROTEIN 6.2 g/dL (6.4-8.2)
[2017-11-23 08:05] VITALS: BP 180/91
[2017-11-23 09:50] VITALS: BP 173/75
[2017-11-23 16:33] VITALS: BP 146/66
[2017-11-23 19:39] VITALS: BP 151/66
[2017-11-23 23:30] VITALS: BP 126/47
[2017-11-24 04:00] VITALS: BP 121/61
[2017-11-24 07:35] VITALS: BP 150/73
[2017-11-24 13:09] VITALS: BP 150/73
[2017-11-24 15:45] VITALS: BP 150/73
[2017-11-24 16:01] VITALS: BP 150/73
== END 2017-11-24 16:11 | disposition home or self-care (01) | DRG 516 ==
LOC: M.ERS 22:11 → M.TBA-ER 23:20 → M.3W 23:20
PROVIDERS: Emergency Medicine; Internal Medicine; Radiology Diagnostic Radiology; ADMIT Internal Medicine
PROC: 0PU43JZ Supplement Thoracic Vertebra with Synthetic Substitute, Percutaneous Approach (ICD-10-PCS; principal; 2017-11-22)
PROC: 0PS43ZZ Reposition Thoracic Vertebra, Percutaneous Approach (ICD-10-PCS; principal; 2017-11-22)
PROC: BR151ZZ Fluoroscopy of Thoracic Facet Joint(s) using Low Osmolar Contrast (ICD-10-PCS; principal; 2017-11-22)
DX: M80.08XA Age-related osteoporosis with current pathological fracture, vertebra(e), initial encounter for fracture (principal); E44.1 Mild protein-calorie malnutrition; M48.061 Spinal stenosis, lumbar region without neurogenic claudication; F41.9 Anxiety disorder, unspecified; G89.29 Other chronic pain; M54.5 Low back pain; R26.81 Unsteadiness on feet; I10 Essential (primary) hypertension; K21.9 Gastro-esophageal reflux disease without esophagitis; F32.9 Major depressive disorder, single episode, unspecified; W01.0XXA Fall on same level from slipping, tripping and stumbling without subsequent striking against object, initial encounter; M47.896 Other spondylosis, lumbar region; E03.9 Hypothyroidism, unspecified; J44.9 Chronic obstructive pulmonary disease, unspecified; Z90.49 Acquired absence of other specified parts of digestive tract; Z68.24 Body mass index [BMI] 24.0-24.9, adult; Z82.49 Family history of ischemic heart disease and other diseases of the circulatory system; Z98.49 Cataract extraction status, unspecified eye; Z90.5 Acquired absence of kidney; Z85.828 Personal history of other malignant neoplasm of skin; Z85.528 Personal history of other malignant neoplasm of kidney; Z90.710 Acquired absence of both cervix and uterus; Z79.2 Long term (current) use of antibiotics; Z87.311 Personal history of (healed) other pathological fracture; Z79.899 Other long term (current) drug therapy; Y93.89 Activity, other specified; Y92.098 Other place in other non-institutional residence as the place of occurrence of the external cause; Y99.8 Other external cause status

== ENCOUNTER 2018-01-29 03:57 | Inpatient (IN) | payer OTHER ==
[~2018-01-29] VITALS: Ht 157.5 cm; Wt 60.3 kg
[2018-01-29 04:03] VITALS: BP 205/84
[2018-01-29 04:46] LABS: ABSOLUTE BASOPHILS 0.1 thou/uL (0.0-0.2); ABSOLUTE EOSINOPHILS 0.1 thou/uL (0.0-0.7); ABSOLUTE LYMPHOCYTES 1.1 thou/uL (0.8-5.3); ABSOLUTE MONOCYTES 0.4 thou/uL (0.0-1.2); ABSOLUTE NEUTROPHILS 2.9 thou/uL (1.6-8.1); BASOPHILS 1.1 %; EOSINOPHILS 2.5 %; HEMATOCRIT 35.1 % (37.0-47.0); HEMOGLOBIN 11.6 gm/dL (12.0-15.0); LYMPHOCYTES 24.5 %; MCH 32.3 pg (26.0-34.0); MCHC 33.1 g/dL (28.0-37.0); MCV 97.9 fL (80.0-100.0); MONOCYTES 7.9 %; NUCLEATED RBCS 0 /100WBC; PLATELET COUNT* 253 thou/uL (150-400); RBC 3.59 mil/uL (4.20-5.00); RDW-CV 15.1 % (10.5-14.5); WBC 4.6 thou/uL (4.0-11.0)
[2018-01-29 04:53] LABS: URINE BILIRUBIN NEGATIVE (Negative); URINE BLOOD 3+ (Negative); URINE CLARITY CLEAR; URINE COLOR YELLOW; URINE GLUCOSE-RANDOM NEGATIVE (Negative); URINE KETONES NEGATIVE (Negative); URINE LEUKOCYTES-REFLEX NEGATIVE (Negative); URINE NITRITE-REFLEX NEGATIVE (Negative); URINE PROTEIN NEGATIVE (Negative); URINE SPECIFIC GRAVITY 1.015 (1.005-1.030); URINE UROBILINOGEN 0.2 E.U./dl (0.2-1.0)
[2018-01-29 05:06] LABS: ANION GAP 3 mmol/L (7-16); BUN 15 mg/dL (7-18); CALCIUM 8.7 mg/dL (8.5-10.1); CHLORIDE 104 mmol/L (98-107); CO2 34 mmol/L (21-32); CREATININE 0.8 mg/dL (0.6-1.3); GLUCOSE 90 mg/dL (70-99); POTASSIUM 3.9 mmol/L (3.5-5.1); SODIUM 141 mmol/L (136-145)
[2018-01-29 05:10] LABS: ALBUMIN 3.1 g/dL (3.4-5.0); ALKALINE PHOSPHATASE 90 U/L (46-116); LIPASE 146 U/L (73-393); SGOT 17 U/L (15-37); SGPT 16 U/L (30-65); TOTAL BILIRUBIN 0.4 mg/dL (<0.1-1.0); TOTAL PROTEIN 6.2 g/dL (6.4-8.2); TROPONIN-I LEVEL <0.06 ng/mL (<0.06)
[2018-01-29 05:17] LABS: BACTERIA-REFLEX 1-9 Few /HPF (None Seen); CASTS None Seen /LPF (None Seen); CRYSTALS None Seen /LPF (None Seen); MUCUS 0-3 Light strn/LPF (None Seen); SQUAMOUS 0-3 Few /LPF (0-3); URINE RBC 3-10 Few /HPF (0-2); URINE WBC-REFLEX 0-5 Rare /HPF (0-5)
[2018-01-29 06:36] LABS: APTT 27.8 Seconds (25.0-31.3); PROTIME 10.3 Seconds (9.20-11.50)
[2018-01-29 11:00] VITALS: BP 173/78
[2018-01-29 11:15] VITALS: BP 164/87
[2018-01-29 16:07] VITALS: BP 133/64
[2018-01-29 20:25] VITALS: BP 141/56
[2018-01-30] VITALS: BP 166/66
[2018-01-30 05:07] VITALS: BP 144/60
[2018-01-30 05:42] LABS: ABSOLUTE EOSINOPHILS 0.1 thou/uL (0.0-0.7); ABSOLUTE LYMPHOCYTES 1.3 thou/uL (0.8-5.3); ABSOLUTE MONOCYTES 0.4 thou/uL (0.0-1.2); ABSOLUTE NEUTROPHILS 2.6 thou/uL (1.6-8.1); BASOPHILS 1.1 %; EOSINOPHILS 3.1 %; HEMATOCRIT 33.5 % (37.0-47.0); LYMPHOCYTES 28.5 %; MCH 32.3 pg (26.0-34.0); MCHC 32.7 g/dL (28.0-37.0); MCV 98.7 fL (80.0-100.0); MONOCYTES 8.1 %; MPV 8.4 fl. (7.2-11.1); NUCLEATED RBCS 0 /100WBC; PLATELET COUNT* 238 thou/uL (150-400); POLYS 59.2 %; RBC 3.39 mil/uL (4.20-5.00); RDW-CV 15.6 % (10.5-14.5); WBC 4.4 thou/uL (4.0-11.0)
[2018-01-30 05:55] LABS: CALCIUM 8.6 mg/dL (8.5-10.1); CREATININE 0.6 mg/dL (0.6-1.3)
[2018-01-30 12:30] VITALS: BP 161/78
[2018-01-30 12:55] VITALS: BP 161/78
--- NOTE | 2018-01-30 16:59 | EKG ---
[place] [address] ELECTROCARDIOGRAM REPORT Name: OBEDDaviNEO Room: [address] IN .R.#: [id number] Admission: 01/29/18 Attend Phys: Osiel Rojas MD Discharge: 01/30/18 Date of : 30 Report #: [id number] THIS REPORT FOR: //name// [facility] ED Test Date: 2018-01-29 Test Time: 04:28:12 Pat Name: NEO ALLEN Department: Room: [facility] Gender: F Digital Marketing Manager: MEENA : 1930 Requested By: Hiram Padron Order Number: [id number] MD: Faizan Howe Measurements Intervals [place] Rate: 69 P: 56 [place]: 183 QRS: -7 QRSD: 123 T: 47 QT: 434 QTc: 465 Interpretive Statements Sinus rhythm Anterior infarct, old Compared to ECG 08/23/2017 08:01:03 No significant changes Electronically Signed On 01-30-2018 16:59:13 CDT by Faizan Howe [email or web address] <ELECTRONICALLY SIGNED> By: Faizan Howe MD, [facility] 01/30/18 1659 0428 0428 Faizan Howe MD, [facility] /EPI
--- NOTE | 2018-02-21 12:52 | CON ---
[address] [address] CONSULTATION Name: NEO ALLEN Room: [address] IN M.R.#: [id number] Admission: 01/29/18 Attend Phys: Osiel Rojas MD Discharge: 01/30/18 Date of : 30 Report #: [id number] THIS REPORT FOR: //name// CC: Osiel Palomo [facility] DATE OF SERVICE: 01/29/2018 HISTORY OF PRESENT ILLNESS: This is a very pleasant 87-year-old female, with past medical history significant for diverticulosis and diverticular bleeding, status post colonic resection, renal cell cancer, status post left nephrectomy, cholecystectomy and hypothyroidism, who is presenting with 2 episodes of bright red blood per rectum. The patient reports the first episode happened in the middle of the night, and the patient felt the urge to pass stool and noticed it was completely full of blood and second episode happened following this in the morning and she noticed about 1/4 of a cup full of blood in her stool. The patient reports similar episode in the past when she was diagnosed with diverticulosis. The patient had an elective colonoscopy a few months back by Dr. Key. The patient denies any significant abdominal pain, nausea, vomiting, chest pain, palpitations, dizziness or loss of consciousness. PAST MEDICAL HISTORY: As mentioned above. The patient has a past medical history of hypothyroidism, GERD and iron deficiency anemia. PAST SURGICAL HISTORY: The patient had a colonic resection for diverticular disease, left nephrectomy for renal cancer, cholecystectomy in the remote past. SOCIAL HISTORY: The patient denies smoking, alcohol or recreational drug use. FAMILY HISTORY: Significant for coronary artery disease. REVIEW OF SYSTEMS: A comprehensive 10-point review of systems is negative except for what is mentioned in the HPI. PHYSICAL EXAMINATION: VITAL SIGNS: Temperature 36.9, pulse rate 78, respirations 18, blood pressure 133/64, O2 saturation 96% on room air. GENERAL: The patient is alert, awake, oriented x 3. HEENT: Pupils are equal, round, reactive to light and accommodation. Mucous membranes are moist. There is no congestion. LUNGS: Clear to auscultation bilaterally. CARDIOVASCULAR: Rate and rhythm regular, S1, S2 present. ABDOMEN: Soft. There is no guarding, no tenderness, no rigidity. EXTREMITIES: Warm, well perfused. There is no focal neurological deficit. SKIN: [place] [address] CONSULTATION Name: NEO ALLEN Room: [address]#: [id number] Admission: 01/29/18 Attend Phys: Osiel Rojas MD Discharge: 01/30/18 Date of : 30 Report #: [id number] LABORATORY DATA: Hemoglobin 11.6, hematocrit 35.1, WBC count 4.6, platelet count 253. Sodium 141, potassium 3.9, chloride 104, bicarbonate 34, BUN 15, creatinine 0.8. AST 17, ALT 16, alkaline phosphatase 90. INR 1. Abdomen and pelvis CT demonstrates diffuse nonspecific gastric wall thickening prior to similar exam while this may represent gastritis. Underlying malignancy cannot be ruled out. Upper GI endoscopy is recommended. No inflammatory mass, ascites or bowel obstruction or other acute process. ASSESSMENT AND PLAN: This is a pleasant 87-year-old female with past medical history significant for diverticular disease, status post colonization and prior history of diverticular bleeding who is presenting with one episode of hematochezia. I offered the patient EGD and colonoscopy for further evaluation, but she declined it at this time stating that she recently had a colonoscopy and that she feels rather well. I would recommend placing the patient on clear liquid diet and monitoring her hemoglobin. If the patient has another episode of hematochezia or significant drop in her hemoglobin, the patient is okay with us proceeding with endoscopic evaluation. <ELECTRONICALLY SIGNED> By: Alin Sr MD 02/21/18 1252 1747 [id number] Sr MD /nt
== END 2018-01-30 16:00 | disposition home or self-care (01) | DRG 378 ==
LOC: M.ERS 03:57 → M.TBA-ER 04:56 → M.ERS 04:56 → M.TBA-ER 06:15 → M.2W 06:15
PROVIDERS: Family Medicine; ADMIT Internal Medicine
DX: K92.2 Gastrointestinal hemorrhage, unspecified (principal); D62 Acute posthemorrhagic anemia; J98.11 Atelectasis; E03.9 Hypothyroidism, unspecified; I10 Essential (primary) hypertension; K21.9 Gastro-esophageal reflux disease without esophagitis; F32.9 Major depressive disorder, single episode, unspecified; F41.9 Anxiety disorder, unspecified; M19.90 Unspecified osteoarthritis, unspecified site; Z85.528 Personal history of other malignant neoplasm of kidney; Z90.5 Acquired absence of kidney; Z85.828 Personal history of other malignant neoplasm of skin; Z87.81 Personal history of (healed) traumatic fracture; Z98.891 History of uterine scar from previous surgery; Z90.710 Acquired absence of both cervix and uterus; Z90.49 Acquired absence of other specified parts of digestive tract; Z79.899 Other long term (current) drug therapy; Z82.49 Family history of ischemic heart disease and other diseases of the circulatory system

== ENCOUNTER 2018-04-19 05:30 | Inpatient (IN) | payer OTHER ==
[~2018-04-19] VITALS: Ht 157.5 cm; Wt 59.0 kg
[2018-04-19 05:41] VITALS: BP 194/89
[2018-04-19 05:58] LABS: ABSOLUTE MONOCYTES 0.5 thou/uL (0.0-1.2); ABSOLUTE NEUTROPHILS 5.4 thou/uL (1.6-8.1); BASOPHILS 0.7 %; EOSINOPHILS 0.3 %; HEMATOCRIT 39.8 % (37.0-47.0); HEMOGLOBIN 12.7 gm/dL (12.0-15.0); MCH 28.7 pg (26.0-34.0); MCV 89.8 fL (80.0-100.0); MONOCYTES 7.5 %; MPV 7.7 fl. (7.2-11.1); NUCLEATED RBCS 0 /100WBC; PLATELET COUNT* 344 thou/uL (150-400); POLYS 77.5 %; RBC 4.43 mil/uL (4.20-5.00); RDW-CV 15.8 % (10.5-14.5)
[2018-04-19 06:07] LABS: PROTIME 10.4 Seconds (9.20-11.50)
[2018-04-19 06:08] LABS: ANION GAP < 0 mmol/L (7-16); BUN 7 mg/dL (7-18); CALCIUM 9.2 mg/dL (8.5-10.1); CHLORIDE 93 mmol/L (98-107); CO2 36 mmol/L (21-32); CREATININE 0.7 mg/dL (0.6-1.3); GLUCOSE 100 mg/dL (70-99); POTASSIUM 3.9 mmol/L (3.5-5.1); SODIUM 128 mmol/L (136-145)
[2018-04-19 06:17] LABS: ALBUMIN 3.6 g/dL (3.4-5.0); ALKALINE PHOSPHATASE 144 U/L (46-116); LIPASE 84 U/L (73-393); NT-PRO BRAIN NAT PEPTIDE 2289 pg/mL (<300); SGOT 21 U/L (15-37); SGPT 19 U/L (30-65); TOTAL BILIRUBIN 0.8 mg/dL (<0.1-1.0); TOTAL PROTEIN 7.5 g/dL (6.4-8.2); TROPONIN-I LEVEL <0.06 ng/mL (<0.06)
[2018-04-19 09:15] VITALS: BP 157/70
[2018-04-19 09:26] VITALS: BP 177/68
--- NOTE | 2018-04-19 10:06 | NUR ---
PATIENT CAME TO THE FLOOR FROM THE ER VIA CART IN STABLE CONDITION ON 3 LITERS OF OXYGEN. SOME DISCOMFORT PER PATIENT BUT FEELS LIKE PRESSURE. ROOM ORIENTATION AND ADMISSION ASSESSMENT DONE, CALL LIGHT IS IN REACH, WILL CONTINUE TO MONITOR.
--- NOTE | 2018-04-19 13:46 | EKG ---
[place] [address] ELECTROCARDIOGRAM REPORT Name: NEO ALLEN Room: [address] ADM IN .R.#: [id number] Admission: 04/19/18 Attend Phys: Bree Clement Discharge: Date of : 30 Report #: [id number] THIS REPORT FOR: //name// [facility] ED Test Date: 2018-04-19 Test Time: 05:46:34 Pat Name: NEO ALLEN Department: Room: [facility] Gender: F Trimmer Climber: [place] : 1930 Requested By: Maritza Rodriguez Order Number: [id number] MD: Yaron Jain Measurements Intervals [place] Rate: 68 P: 53 OR: 176 QRS: -1 QRSD: 116 T: 35 QT: 428 QTc: 456 Interpretive Statements Sinus rhythm Anterior infarct, old Compared to ECG 01/29/2018 04:28:12 No significant changes Electronically Signed On 04-19-2018 13:46:46 ANTHROPOLOGY LECTURER by Yaron aJin [email or web address] <ELECTRONICALLY SIGNED> By: Yaron Jain MD, [facility] 04/19/18 1346 0546 0546 Yaron Jain MD, [facility] /EPI
--- NOTE | 2018-04-19 14:05 | 2DMMODE ---
[place] [address] 2 D/M-MODE ECHOCARDIOGRAM Name: OBEDDaviRAMYNEO Juanito Room: [facility] ADM IN [facility]#: [id number] Admission: 04/19/18 Attend Phys: Venu Frazier Discharge: Date of : 30 Date of Service: 04/19/18 1405 Report #: [id number] THIS REPORT FOR: //name// APPROVED REPORT Study performed: 04/19/2018 10:31:34 EXAM: Comprehensive 2D, Doppler, and color-flow Echocardiogram Patient Location: In-Patient Room #: [facility] Status: routine BSA: 1.59 HR: 84 bpm BP: 177/68 mmHg Rhythm: NSR Other Information Study Quality: Good Indications Hypoxia 2D Dimensions IVSd: 14.02 (7-11mm) LVOT Diam: 19.89 (18-24mm) LVDd: 40.62 mm PWd: 11.15 (7-11mm) Ascending Ao: 31.87 (22-36mm) LVDs: 27.88 (25-40mm) Aortic Root: 29.20 mm Volumes Left Atrial Volume (Systole) LA ESV Index: 46.40 mL/m2 Aortic Valve AoV Peak Joce.: 1.55 m/s AO Peak Gr.: 9.56 mmHg LVOT Max P.79 mmHg AO Mean Gr.: 5.45 mmHg LVOT Mean P.83 mmHg LVOT Max V: 0.97 m/s AO V2 VTI: 31.98 cm LVOT Mean V: 0.62 m/s MARTHA (VTI): 1.99 cm2 LVOT V1 VTI: 20.52 cm Mitral Valve E/A Ratio: 0.62 MV Decel. Time: 232.83 ms MV E Max Joce.: 0.82 m/[place] [address] 2 D/M-MODE ECHOCARDIOGRAM Name: NEO ALLEN Room: [address] IN .R.#: [id number] Admission: 04/19/18 Attend Phys: Venu Frazier Discharge: Date of : 30 Date of Service: 04/19/18 1405 Report #: [id number] MV PHT: 67.52 ms MVA (PHT): 3.26 cm2 TDI E/Lateral E': 11.71 E/Medial E': 20.50 Medial E' Joce.: 0.04 m/s Lateral E' Joce.: 0.07 m/s Pulmonary Valve PV Peak Joce.: 0.93 m/s PV Peak Gr.: 3.45 mmHg Tricuspid Valve RAP Estimate: 5.00 mmHg TR Peak Gr.: 37.65 mmHg RVSP: 42.00 mmHg PA Pressure: 42.00 mmHg Left Ventricle The left ventricle is normal size. There is normal LV segmental wall motion. Mild concentric left ventricular hypertrophy. Left ventricular systolic function is normal. The left ventricular ejection fraction is within the normal range. LVEF is 60-65%. Grade I - abnormal relaxation pattern. Right Ventricle Right ventricle is mildly dilated. Right ventricle is mildly hypokinetic. Atria Left atrium is moderately dilated. The right atrium size is normal. Aortic Valve Mild aortic valve sclerosis. No aortic regurgitation is present. There is normal aortic valve excursion. Mitral Valve There is mitral annular calcification. Trace mitral regurgitation. No evidence of mitral valve stenosis. Tricuspid Valve The tricuspid valve is normal in structure. Trace tricuspid regurgitation. Moderate pulmonary hypertension. Pulmonic Valve The pulmonary valve is normal in structure. [place] [address] 2 D/M-MODE ECHOCARDIOGRAM Name: NEO ALLEN Room: [address] IN [facility]#: [id number] Admission: 04/19/18 Attend Phys: Venu Frazier Discharge: Date of : 30 Date of Service: 04/19/18 1405 Report #: [id number] Great Vessels The aortic root is normal in size. IVC is normal in size and collapses >50% with inspiration. Pericardium There is no pericardial effusion. <Conclusion> LVEF is 60-65%. There is normal LV segmental wall motion. Right ventricle is mildly dilated. Right ventricle is mildly hypokinetic. Left atrium is moderately dilated. There is normal aortic valve excursion. No aortic regurgitation is present. No evidence of mitral valve stenosis. Trace mitral regurgitation. Trace tricuspid regurgitation. Moderate pulmonary hypertension. Grade I - abnormal relaxation pattern. <ELECTRONICALLY SIGNED> By: Yaron Jain MD, FACC 04/19/18 1405 1405 1405 Yaron Jain MD, FACC /INF
[2018-04-19 16:00] VITALS: BP 128/48
[2018-04-19 16:19] VITALS: BP 143/80
--- NOTE | 2018-04-19 18:31 | NUR ---
PATIENT IS ALERT AND ORIENTED TODAY. VITAL SIGNS STABLE ON 3 LITERS OF OXYGEN. PATIENT IS UP WITH WALKER AND STAND BY TO THE BEDSIDE COMMODE, NEED A URINE SAMPLE. SON CALLED AND SAID PATIENT REFUSES TO WEAR OXYGEN AT HOME BUT IT IS NEEDED SATS DROPPED TO LOW 80'S WITHOUT IT. CALL LIGHT IS IN REACH, BED ALARM IS ON. WILL CONTINUE TO MONITOR.
[2018-04-19 20:15] VITALS: BP 124/49
[2018-04-20 02:33] VITALS: BP 158/79
--- NOTE | 2018-04-20 05:43 | NUR ---
PT SLEPT MOST OF SHIFT. ASSESSMENT DOCUMENTED. MEDS GIVEN PER E-MAR. IV PATENT, FLUIDS FINISHED INFUSING. PAIN AND NAUSEA MEDS GIVEN PER E-MAR WITH RELIEF. O2 REMAINED ON THIS SHIFT. WILL CONTINUE WITH PLAN OF CARE.
[2018-04-20 07:50] VITALS: BP 162/82
[2018-04-20 09:05] LABS: HEMATOCRIT 40.4 % (37.0-47.0); HEMOGLOBIN 12.5 gm/dL (12.0-15.0); MCHC 30.9 g/dL (28.0-37.0); MCV 93.6 fL (80.0-100.0); MPV 8.1 fl. (7.2-11.1); NUCLEATED RBCS 0 /100WBC; RBC 4.31 mil/uL (4.20-5.00); RDW-CV 15.6 % (10.5-14.5); WBC 4.7 thou/uL (4.0-11.0)
[2018-04-20 09:10] LABS: PLATELET COUNT* 262 thou/uL (150-400)
[2018-04-20 09:44] LABS: ABSOLUTE LYMPHOCYTES 0.3 thou/uL (0.8-5.3); ABSOLUTE NEUTROPHILS 4.4 thou/uL (1.6-8.1); ANISOCYTOSIS 1+; PLATELET ESTIMATE ADEQUATE; POIKILOCYTOSIS 1+
[2018-04-20 11:52] LABS: CALCIUM 8.8 mg/dL (8.5-10.1); CREATININE 0.7 mg/dL (0.6-1.3); POTASSIUM 4.6 mmol/L (3.5-5.1)
--- NOTE | 2018-04-20 14:50 | NUR ---
SW attempted to meet with pt; pt out of room at this time. SW attempted to call pt sister Sheron and there was no answer. SW to continue to follow to assist with safe dc planning.
[2018-04-20 17:07] VITALS: BP 131/76
--- NOTE | 2018-04-20 17:27 | NUR ---
ASSESSMENT COMPLETE. PT VERY CONFUSED TODAY. PT ONLY ORIENTED TO SELF. PT ANXIOUS AND AGITATED. NOTIFIED AND THINKS COULD BE STEROIDS, WHICH WERE DECREASED. STAT HEAD CT ORDERED AND NEGATIVE. PRN HALDOL ORDERED. IV LEVAQUIN DC'D, AUGMENTIN STARTED. PT IS ON 4L PER NC. PT DENIES PAIN AND N/V. PT IS FALL RISK, BED ALARM ON. PT HAS BRIEF IN PLACE FOR STRESS INCONT. PT IS UP ONE ASSIST TO BSC. SEE ASSESSMENT AND VITALS FOR OTHER DETAILS. CALL LIGHT WITHIN REACH, WILL CONTINUE PLAN OF CARE
[2018-04-20 20:56] VITALS: BP 133/48
--- NOTE | 2018-04-21 04:54 | NUR ---
PATIENT AWAKE AND ORIENTED TO SELF ONLY. PT AWAKE ALL NIGHT YELLING OUT. PT NOT PULLING AT LINES OR ATTEMPTING TO GET OUT OF BED, ONLY YELLING OUT. ORDER RECEIVED FROM DR RODRÍGUEZ FOR BENEDRYL 25-50MG PO BENEDRYL. BENEDRYL 50MG PO GIVEN BUT PT STILL AWAKE. PT UP WITH ASSIST OF TWO TO BSC. PT VOIDED YELLOW URINE. PT DENIES PAIN/NAUSEA ON THIS SHIFT. FREQUENLTY USED ITEMS AND CALL LIGHT WITHIN REACH. SIDERAILS UPX4 AND BED ALARM ON. FREQUENT OBSERVATIONS MADE. WILL CONTINUE TO MONITOR.
[2018-04-21 07:50] VITALS: BP 163/71
[2018-04-21 13:54] LABS: URINE BILIRUBIN NEGATIVE (Negative); URINE BLOOD NEGATIVE (Negative); URINE CLARITY CLEAR; URINE COLOR YELLOW; URINE GLUCOSE-RANDOM NEGATIVE (Negative); URINE KETONES TRACE (Negative); URINE LEUKOCYTES-REFLEX TRACE (Negative); URINE NITRITE-REFLEX NEGATIVE (Negative); URINE PROTEIN NEGATIVE (Negative); URINE SPECIFIC GRAVITY <= 1.005 (1.005-1.030); URINE UROBILINOGEN 0.2 E.U./dl (0.2-1.0)
[2018-04-21 14:08] LABS: BACTERIA-REFLEX None Seen /HPF (None Seen); CASTS None Seen /LPF (None Seen); CRYSTALS None Seen /LPF (None Seen); SQUAMOUS 0-3 Few /LPF (0-3); URINE RBC None Seen /HPF (0-2); URINE WBC-REFLEX 0-5 Rare /HPF (0-5)
--- NOTE | 2018-04-21 17:50 | NUR ---
ASSESSMENT COMPLETE. PT SEEN BY AND HAS POSSIBLE HOSP PSYCHOSIS. PT GIVEN IM GEODON TWICE AND PT STILL TALKING AND YELLING TO SELF IN ROOM. PT HAS PRN HALDOL WELL. PT IS NON COMPLIANT AND AGITATED. PT CLIMBS OUT OF BED WHEN NEEDING TO URINATE. PT HAS DRIBBLING AND STRESS INCONT. PT IS FALL RISK, BED ALARM ON. PT IS ON 4L PER NC. PT DENIES PAIN AND N/V. TOLERATING SOME OF HER MEALS. PT IS UP 2 ASSIST TO BSC. SKIN INTACT, BRUISING AND SCARS NOTED. SEE ASSESSMENT AND VITALS FOR OTHER DETAILS. CALL LIGHT WITHIN REACH, WILL CONTINUE TO MONITOR
[2018-04-22 00:10] VITALS: BP 175/82
[2018-04-22 04:23] LABS: ABSOLUTE LYMPHOCYTES 0.6 thou/uL (0.8-5.3); ABSOLUTE MONOCYTES 0.7 thou/uL (0.0-1.2); ABSOLUTE NEUTROPHILS 5.9 thou/uL (1.6-8.1); BASOPHILS 0.2 %; EOSINOPHILS 0.4 %; HEMATOCRIT 39.3 % (37.0-47.0); HEMOGLOBIN 12.5 gm/dL (12.0-15.0); LYMPHOCYTES 7.8 %; MCH 28.7 pg (26.0-34.0); MCHC 31.9 g/dL (28.0-37.0); MCV 89.9 fL (80.0-100.0); MONOCYTES 9.6 %; MPV 8.4 fl. (7.2-11.1); NUCLEATED RBCS 0 /100WBC; PLATELET COUNT* 288 thou/uL (150-400); RBC 4.37 mil/uL (4.20-5.00); RDW-CV 15.8 % (10.5-14.5); WBC 7.2 thou/uL (4.0-11.0)
[2018-04-22 04:37] LABS: ALBUMIN 3.2 g/dL (3.4-5.0); CALCIUM 9.1 mg/dL (8.5-10.1); CREATININE 0.7 mg/dL (0.6-1.3); POTASSIUM 3.3 mmol/L (3.5-5.1); TOTAL BILIRUBIN 0.7 mg/dL (<0.1-1.0); TOTAL PROTEIN 6.8 g/dL (6.4-8.2)
[2018-04-22 08:40] VITALS: BP 151/58
[2018-04-22 16:52] VITALS: BP 145/61
--- NOTE | 2018-04-22 18:04 | NUR ---
PT NOT PROGRESSING TOWARDS GOALS THIS SHIFT. RT HAS TITRATE PT TO 6L/NC TO MAINTAIN SATS >92%. PT AWAKE AND AGITATED THIS KAILEY, PARANOIA NOTED. GRAND-DAUGHTER AT BEDSIDE. SISTER CALLED THIS EVENING AND STATES PT HAS BEEN INSTRUCTED TO USE THICKENED LIQUIDS AT HOME PRIOR TO ADMISSION. WILL NOTIFY PHYSICIAN. NO OTHER CONCERNS AT THIS TIME. CLWR. WCTM.
[2018-04-23 07:50] VITALS: BP 181/90
--- NOTE | 2018-04-23 16:27 | NUR ---
SW met with pt to complete initial assessment, introduce self, and SW role. Pt was busy with a chest x ray when SW attempted to meet with pt earlier today. Pt was talking with SW about what drinks she wanted and that she did not want to need thickener. Pt was at home alone and doctor and nurse's recommendation is for pt to have placement as they do not foresee pt being safe to return home alone at this time. SW was told by nursing that family mentioned pt was on a list at [facility]; SW spoke with Clair in admissions at [facility]; pt is on a list for LTC at [facility] but still not first on the list. There are SMOOTH options available and/or possible pt could qualify/be accepted for SNF. SW to fax referral for SNF to [facility], discuss with family and continue to follow to assist with safe dc planning.
--- NOTE | 2018-04-23 18:53 | NUR ---
ASSESSMENT COMPLETE. PT SEEMS MORE CALM TODAY, NOT YELLING IN ROOM. PT STILL TALKING TO SELF AND CONFUSED. PT IS REFUSING TO EAT. PT ASKING FOR REGULAR WATER NOT THICKENED ALL DAY. PT IS NON COMPLIANT WITH HOME O2 AND THICKENED LIQUIDS AT HOME. PT GIVEN IV ROCEPHIN. PT UP IN CHAIR PART OF THE DAY. PT IS ON 3L PER NC. CXR THIS AFTERNOON. PT DENIES PAIN AND N/V. PT HAS FAMILY AT BEDSIDE. BED ALARM ON. SEE ASSESSMENT AND VITALS FOR OTHER DETAILS. CALL LIGHT WITHIN REACH, WILL CONTINUE PLAN OF CARE
[2018-04-23 20:30] VITALS: BP 187/78
[2018-04-24] VITALS: BP 144/50
--- NOTE | 2018-04-24 06:06 | NUR ---
PT AWAKE MOST OF SHIFT TALKING TO SELF BUT CALM. PT ORIENTED TO SELF AND PLACE ONLY. ASSESSMENT DOCUMENTED. MEDS GIVEN PER E-MAR. IV PATENT. NO REPORTS OF PAIN OR NAUSEA MEDS THIS SHIFT. PRN BLOOD PRESSURE MEDS GIVEN ONCE THIS SHIFT. WILL CONTINUE WITH PLAN OF CARE.
[2018-04-24 07:46] VITALS: BP 176/80
[2018-04-24 16:07] VITALS: BP 177/75
--- NOTE | 2018-04-24 16:07 | NUR ---
SW spoke with pt dtr in law at [phone] and she discussed that pt family preference would be for [facility]. SW called and also faxed referral to [facility]; insurance might be a challenge with acceptance to [facility] because they do not have many contracts with commercial insurances. SW to continue to follow to assist with SNF and/or LTC placement.
[2018-04-24 19:45] VITALS: BP 191/87
[2018-04-25 04:00] VITALS: BP 176/80
--- NOTE | 2018-04-25 05:07 | NUR ---
PT SLEPT MOST OF SHIFT. PT PLESANT WHILE AWAKE, ORIENTED TO PERSON AND PLACE ONLY. NO REPORTS OF PAIN THIS SHIFT. PT WAS UP IN CHAIR PART OF SHIFT. PRN BP MEDICATION GIVEN PER E-MAR. WILL CONTINUE WITH PLAN OF CARE.
--- NOTE | 2018-04-25 06:54 | NUR ---
PT REFUSING AM MEDICATIONS, STATING SHE CAN'T TAKE ANYTHING UNTIL AI GETS HERE.
[2018-04-25 08:25] VITALS: BP 168/78
--- NOTE | 2018-04-25 09:45 | NUR ---
CAN FILLING ROOM SWEEPER SPOKE TO MURIEL WITH ADMISSIONS AT [facility] AND SHE INFORMS THAT THE FACILITY IS ABLE TO ACCEPT THE PATIENT'S INSURANCE AND WILL BEGIN WORKING ON AUTH. CM WILL REMAIN AVAILABLE TO ASSIST AND FOLLOW NEEDED.
[2018-04-25] MEDS ORDERED: ALPRAZOLAM0.5 M2 PO ×2 (12:55→12:58)
[2018-04-25 17:15] VITALS: BP 160/87
--- NOTE | 2018-04-25 17:37 | NUR ---
PATIENT RESTING IN BED. PATIENT IS CONFUSED. PATIENT REFUSED ALL MEDS THIS AM. PATIENT REFUSES MEALS. PATIENT WILL DRINK SMALL AMOUNTS OF FLUIDS. PATIENT DENIES ANY TROUBLE BREATHING AND HAS LEFT OXYGEN ON AT 2L/NC. PATIENT DENIES ANY NEEDS AT THIS TIME. BED ALARM ON. CALL LIGHT WITHIN REACH. WILL CONTINUE TO MONITOR.
[2018-04-25 20:15] VITALS: BP 135/81
--- NOTE | 2018-04-26 06:14 | NUR ---
PT AWAKE WHOLE SHIFT. ASSESSMENT DOCUMENTED. MEDS GIVEN PER E-MAR. IV PATENT. NO REPORTS OF PAIN OR NAUSEA. PT OREINTED TO SELF AND PLACE ONLY, TALKING TO SELF MOST OF SHIFT. WILL CONTINUE WITH PLAN OF CARE.
[2018-04-26 08:05] VITALS: BP 185/93
--- NOTE | 2018-04-26 14:32 | NUR ---
Nutrition: Pt assessed for LOS. Awaiting insurance auth for SNF. Pt confused, talking to self. Regular diet. Refusing meals. Per RN notes, pt is drinking Ensure. Albumin 3.2, K+ 3.3. Wt: 130#. Pt will discharge when available. At risk for poor nutriiton. Please continue offering supplements and encouraging meal intake. Consider Mild risk at this time.
[2018-04-26 16:16] VITALS: BP 190/117
--- NOTE | 2018-04-26 16:23 | NUR ---
ARIELLE followed up with admissions/Sharon at [facility] who said that they were unable to receive an agreement with pt insurance and would be unable to accept pt for SNF. ARIELLE spoke with pt son Brad who was aware of [facility] denying placement. ARIELLE faxed referral to [facility] and then spoke with Ibeth in admissions who denied pt for SNF stating that they would be unable to meet pt needs. ARIELLE faxed referral to [facility] with [facility] to see if they would have bed available and an option for SNF for pt. ARIELLE also faxed referral to other pt/family choice of [facility] and spoke with Clair who said that they would have a bed available tomorrow and that [facility] would visit pt/family tomorrow and would begin authorization with insurance to see if they could accept pt for SNF tomorrow. ARIELLE to continue to follow to assist with safe dc planning.
--- NOTE | 2018-04-26 19:48 | NUR ---
PATIENT RESTING IN BED. PATIENT DENIES ANY PAIN. PATIENT IS CONFUSED. PATIENT REFUSING TO EAT AND DRINK MINIMALLY. PATIENT IS UP WITH ASSIST. PATIENT REPOSITIONED WHILE IN BED. PATIENT AWAITING PLACEMENT. PATIENT DENIES ANY NEEDS AT THIS TIME. CALL LIGHT WITHIN REACH. BED ALARM ON. WILL CONTINUE TO MONITOR.
[2018-04-26 20:30] VITALS: BP 131/59
--- NOTE | 2018-04-27 06:43 | NUR ---
PT SLEPT ON AND OFF THIS SHIFT. ASSESSMENT DOCUMENTED. MEDS GIVEN PER E-JUN. IV PATENT. NO REPORTS OF PAIN THIS SHIFT. PT ORIENTED TO SELF AND PLACE ONLY. PT HAD BOWEL MOVEMENT THIS SHIFT. WILL CONTINUE WITH PLAN OF CARE.
[2018-04-27 07:50] VITALS: BP 160/64
--- NOTE | 2018-04-27 11:27 | NUR ---
ARIELLE received call from pt son Brad wondering about a copy of pt AD/DPOA; SW searched pt chart and scanned images and did not find a copy. Pt family called [facility] where pt had a surgery years ago and the family requested that [facility]'s request medical record from [facility]; pt nurse informed Julianne to begin request. ARIELLE explained referral denied by [facility] as well [facility] and that ARIELLE sent to [facility] in [place] who accepted pt and had auth, ARIELLE also sent to [facility] who was expected to also accept pt; then ARIELLE received call from Clair in admissions at [facility] confirming acceptance and scheduled ride for 2:30 pm. ARIELLE to fax final orders and med list to [facility] ph [phone] fax [phone]. ARIELLE called pt family and informed of dc information; all in agreement with plan. Pt nurse aware. Chart copied already.
[2018-04-27 12:44] VITALS: BP 160/64
[2018-04-27] MEDS ORDERED: AUGMENTIN 500-1 EACH PO (12:47)
[2018-04-27 14:57] VITALS: BP 160/64
--- NOTE | 2018-04-27 14:58 | NUR ---
PT DISCHARGED VIA WHEELCHAIR VAN TO SNF. DISCHARGE INSTRUCTIONS SENT. IV DC'D. PT IS ON 2L PER NC. PT DRESSED IN HOME CLOTHING.
== END 2018-04-27 14:20 | DRG 177 ==
LOC: M.ERS 05:30 → M.3W 07:28 → M.TBA-ER 07:28 → M.3W 09:22
PROVIDERS: Emergency Medicine; Internal Medicine; ADMIT Internal Medicine
DX: J15.6 Pneumonia due to other Gram-negative bacteria (principal); I50.33 Acute on chronic diastolic (congestive) heart failure; J96.91 Respiratory failure, unspecified with hypoxia; G92 Toxic encephalopathy; E87.1 Hypo-osmolality and hyponatremia; J44.9 Chronic obstructive pulmonary disease, unspecified; M19.90 Unspecified osteoarthritis, unspecified site; Z85.528 Personal history of other malignant neoplasm of kidney; Z90.5 Acquired absence of kidney; Z90.49 Acquired absence of other specified parts of digestive tract; Z82.49 Family history of ischemic heart disease and other diseases of the circulatory system